=== PATIENT | female | born 1990 | race Caucasian/White ===

== ENCOUNTER 2023-03-25 08:45 | Emergency (ER) | payer BC, SELFPAY ==
[2023-03-25 09:34] VITALS: BP 121/73; PULSE 84; RESP 18; TEMP 36.9; O2SAT 97; BMI 22.6
--- NOTE | 2023-03-25 09:47 | W.ED.UPPEXIN ---
HPI - Extremity Injury (Upper) General: Chief Complaint: Fall Stated Complaint: fall, left arm injury Time Seen by Provider: 03/25/23 08:47 Source: patient Mode of arrival: ambulatory Limitations: no limitations History of Present Illness: Patient is a 32-year-old female presents to ED today with a complaint of a left forearm injury that she sustained just prior to arrival after she slipped on some wet stairs and fell directly onto the forearm. She denies any other injuries or complaints at this time. complaint: injury to: left and forearm Onset (ago): hour(s) Other Extremity Injury: Left: arm Other injuries: none Place: home Severity: moderate Relieving factors: immobilization Exacerbating factors: movement of extremity Context: fall and direct blow Associated symptoms: Reports no associated symptoms; Denies weakness in extremities Review of Systems Musc: Reports: extremity pain (L forearm); Denies: extremity swelling, joint pain, joint swelling, joint redness or joint warmth Skin/Breast: Reports: other (abrasion L forearm) Neuro: Denies: numbness in extremities, weakness in extremities or sensory changes Physical Exam Const: COMMON NORMALS: no acute distress, average body habitus, patient oriented x3, no limitations, healthy appearing, alert and well nourished HENMT: COMMON NORMALS: normocephalic and atraumatic HEAD & SCALP: normal to inspection, normocephalic and atraumatic Neck/C-Spine: COMMON NORMALS: full ROM CERVICAL SPINE: No Cervical spine tenderness Back/Pelvis: COMMON NORMALS: thoracic and lumbar spine normal to inspection and no thoracic nor lumbar tenderness Extremity: COMMON NORMALS: capillary refill normal GENERAL: Yes normal exam except as noted LEFT UPPER EXTREMITY: Yes elbow joint (full painless ROM), Yes lower arm (contusion/abrasion noted to ulnar mid forearm region w/o deformity) Left lower arm: Yes neurovascular exam (normal) and Yes wrist (full painless ROM) Neuro: COMMON NORMALS: patient oriented x3, moves all extremities, no focal motor deficits and no sensory deficits noted SENSORIUM/ORIENTATION: Yes alert Skin: NARRATIVE SKIN EXAM: minor L mid forearm abrasion Course Vital Signs: Vital signs: Vital Signs Temperature 98.4 F 03/25/23 09:34 Pulse Rate 84 03/25/23 09:34 Respiratory Rate 18 03/25/23 09:34 Blood Pressure 121/73 03/25/23 09:34 Pulse Oximetry 97 03/25/23 09:34 Oxygen Delivery Me thod Room Air 03/25/23 09:34 MDM - Extremity Injury (Upper) Medical Decision Making XR negative. Conservative therapies discussed. Discharge Plan Discharge Patient Disposition: Home Clinical Impression: Contusion of forearm, left Qualifiers: Encounter type: initial encounter Qualified Code(s): S50.12XA - Contusion of left forearm, initial encounter Condition: Stable Discharge Orders: Discharge ED (Routine); Ordered 03/25/23 Ordered By: Mikala Harper Patient Instructions: Contusion Coding Level of Care Code ED Spa Director/Finance for Derek Ramos
--- NOTE | 2023-03-25 09:50 | XRR_ITS ---
PROCEDURE INFORMATION: Exam: XR Left Forearm Exam date and time: 03/25/2023 9:59 AM Age: 32 years old Clinical indication: Injury or trauma; Blunt trauma (contusions or hematomas); Arm, lower; Left; Patient HX: Fall prev FX of lt forearm; Additional info: Fall/contusion/pain TECHNIQUE: Imaging protocol: Radiologic exam of the left forearm. Views: 2 views. COMPARISON: No relevant prior studies available. FINDINGS: Bones/joints: No radial fracture identified. No ulnar fracture identified. Soft tissues: Normal. XR/XR forearm LT 2V [id number] IMPRESSION: No radial or ulnar fracture identified.
== END 2023-03-25 10:19 | disposition home or self-care (01) ==
PROVIDERS: Emergency Provider Physician Assistant
DX: S50.12XA Contusion of left forearm, initial encounter (principal); W01.0XXA Fall on same level from slipping, tripping and stumbling without subsequent striking against object, initial encounter
CPT/HCPCS: 73090; 99283

== ENCOUNTER 2023-08-24 05:31 | Emergency (ER) | payer OTHER, SELFPAY ==
[2023-08-24 05:39] VITALS: BP 119/84; PULSE 110; RESP 23; TEMP 36.4; O2SAT 100; BMI 22.3
--- NOTE | 2023-08-24 05:50 | W.ED.NAVMDI ---
HPI - Nausea/Vomiting/Diarrhea General: Chief complaint: Nausea/Vomiting/Diarrhea Stated complaint: n/v Time Seen by Provider: 08/24/23 05:45 Source: patient Mode of arrival: ambulatory History of Present Illness: 33-year-old female presents to the emergency room with complaints of nausea and vomiting. Patient had rapid breathing with cramping of her hands and feet. She is still hyperventilating on arrival here she is not currently having any carpopedal spasm. She did admit to the nurses to drinking heavily last night. Patient has nausea and vomiting this morning. Denies abdominal pain no dysuria urgency or frequency she did have some flank pain last night that got better after she drank some water. MD elicited complaint: nausea and vomiting Onset (ago): hour(s) Description of vomiting: food contents and watery Associated nausea: Yes Associated abdominal pain: No Associated symtoms: Reports anxiety, anorexia, nausea and short of breath; Denies altered mental status, bloating, change in vision, chest pain, cough, diaphoresis, decreased urine output, dizziness, dysuria, epistaxis, fatigue, fecal incontinence, fevers/chills, headache(s), malaise, myalgias, numbness, palpitations, rash, syncope, tenesmus, tinnitus or weakness Review of Systems Const: Denies: fever(s), chills, fatigue, malaise or diaphoresis Eyes: Denies: change in vision ENMT: Denies: tinnitus or epistaxis Card: Denies: chest pain, palpitations or syncope Resp: Denies: dyspnea GI: Reports: nausea; Denies: abdominal pain, bloating or fecal incontinence : Denies: dysuria, urinary frequency or urinary urgency Musc: Denies: neck pain or back pain Skin/Breast: Denies: rash Neuro: Denies: headache(s) or dizziness Psych: Reports: anxiety Physical Exam Const: COMMON NORMALS: no acute distress EXAM LIMITATIONS: no altered mental status GENERAL APPEARANCE: cooperative and comfortable ORIENTATION/CONSCIOUSNESS: Yes awake, Yes oriented to person, Yes oriented to place and Yes oriented to time HENMT: COMMON NORMALS: normocephalic, atraumatic and hearing grossly normal bilaterally HEAD & SCALP: normocephalic and atraumatic Resp: COMMON NORMALS: normal respiratory effort, No retractions, No use of accessory muscles and clear to auscultation bilaterally AUSCULTATION: clear to auscultation bilaterally Cardio: COMMON NORMALS: regular rate, regular rhythm and No murmurs present (Cardio) RATE: regular rate RHYTHM: regular rhythm GI: COMMON NORMALS: Soft to palpation and No hepatosplenomegaly present AUSCULTATION: Yes normoactive bowel sounds PALPATION: Yes Soft to palpation, No Tenderness to palpation present (GI), No Guarding due to palpation present (GI) and Yes No hepatosplenomegaly present Extremity: COMMON NORMALS: normal to inspection, capillary refill normal, no clubbing, cyanosis or edema, no calf tenderness and no pedal edema Neuro: SENSORIUM/ORIENTATION: Yes oriented to person, Yes oriented to place and Yes oriented to time Skin: COMMON NORMALS: no rashes or lesions noted GENERAL SKIN EXAM: no rashes or lesions noted Course Vital Signs: Vital signs: Vital Signs Temperature 97.6 F 08/24/23 05:39 Pulse Rate 100 08/24/23 06:49 Respiratory Rate 16 08/24/23 06:49 Blood Pressure 105/57 08/24/23 06:49 Pulse Oximetry 98 08/24/23 06:49 Oxygen Delivery Me thod Room Air 08/24/23 06:49 MDM - Nausea/Vomiting/Diarrhea Medical Decision Making Blood gas shows respiratory alkalosis from hyperventilation clinically appearance is same. She been drinking heavily last anything for nausea vomiting is from the effects of alcohol and alcoholic gastritis. Advance diet as tolerated Pepcid 1 p.o. twice daily for a week promethazine as needed follow-up as needed Medical Records I reviewed the patient's medical records. Lab Data I reviewed the patient's lab results. 08/24/23 05:45 08/24/23 05:45 Laboratory Results WBC 13.53 10^3/uL (3.29-11.43) H 08/24/23 05:45 RBC 5.08 10^6/uL (3.85-5.65) 08/24/23 05:45 Hgb 14.70 g/dL (11.27-16.99) 08/24/23 05:45 Hct 43.7 % (36-47) 08/24/23 05:45 MCV 86.0 fl (85-98) 08/24/23 05:45 MCH 28.9 pg (27-33) 08/24/23 05:45 MCHC 33.6 g/dL (30-55) 08/24/23 05:45 RDW 12.4 % (12.1-15.1) 08/24/23 05:45 Plt Count 266 10^3/cmm (157-399) 08/24/23 05:45 MPV 10.1 fL (7.4-10.4) 08/24/23 05:45 Neut % (Auto) 78.4 % 08/24/23 05:45 Lymph % (Auto) 12.9 % 08/24/23 05:45 Sullivan % (Auto) 7.0 % 08/24/23 05:45 Eos % (Auto) 0.6 % 08/24/23 05:45 Baso % (Auto) 0.4 % 08/24/23 05:45 Neut # (Auto) 10.61 10^3/uL (1.8-7.7) H 08/24/23 05:45 Lymph # (Auto) 1.8 10^3/uL (0.8-4.8) 08/24/23 05:45 Sullivan # (Auto) 1.0 10^3/uL (0.2-0.9) H 08/24/23 05:45 Eos # (Auto) 0.1 10^3/uL (0.0-0.8) 08/24/23 05:45 Baso # (Auto) 0.1 10^3/uL (0.0-0.1) 08/24/23 05:45 Nucleated RBC % (auto) 0 % 08/24/23 05:45 Nucleated RBCs # 0.0 /100WBC 08/24/23 05:45 Specimen Type Arterial 08/24/23 06:19 Sample Site Radial, left 08/24/23 06:19 ABG pH 7.49 (7.35-7.45) H 08/24/23 06:19 ABG pCO2 23.2 mmHg (35-45) L 08/24/23 06:19 ABG pO2 121.0 mmHg (80.0-100.0) H 08/24/23 06:19 ABG PO2/FiO2 Ratio 0 08/24/23 06:19 ABG HCO3 17.7 mmol/L (22-26) L 08/24/23 06:19 ABG O2 Saturation 99.3 08/24/23 06:19 ABG Base Excess -3.6 mmol/L (-2.0-2.0) L 08/24/23 06:19 Ankit Test Pos 08/24/23 06:19 A-a O2 Gradient Not Reportable 08/24/23 06:19 Hematocrit 43.1 % (37-47) 08/24/23 06:19 Hgb O2 Saturation 98.4 % (95-100) 08/24/23 06:19 Carboxyhemoglobin 0.6 %THgb (0.4-20.1) 08/24/23 06:19 Methemoglobin 0.4 % (0.4-1.5) 08/24/23 06:19 Total Hemoglobin 14.1 g/dL (12-16) 08/24/23 06:19 Sodium 143.0 mmol/L (131-143) 08/24/23 06:19 Potassium 3.4 mmol/L (3.5-5.0) L 08/24/23 06:19 Glucose 107.0 mg/dL (70-115) 08/24/23 06:19 Ionized Calcium 1.1 mmol/L (1.1-1.4) 08/24/23 06:19 O2 Delivery Device Room air 08/24/23 06:19 FiO2 21.0 % 08/24/23 06:19 Plant Custodian ID [place] 08/24/23 06:19 Sodium 142 mmol/L (136-145) 08/24/23 05:45 Potassium 4.0 mmol/L (3.5-5.1) 08/24/23 05:45 Chloride 104 mmol/L (98-107) 08/24/23 05:45 Carbon Dioxide 20 mmol/L (22-29) L 08/24/23 05:45 Anion Gap 21.8 (5-19) H 08/24/23 05:45 BUN 12 mg/dL (6-20) 08/24/23 05:45 Creatinine 0.8 mg/dL (0.5-0.9) 08/24/23 05:45 GFR Calculation 82.6 mL/min (90-130) L 08/24/23 05:45 Glucose 111 mg/dL (65-115) 08/24/23 05:45 Calculated Osmolality 286 mOsm/kg (285-295) 08/24/23 05:45 Calcium 9.5 mg/dL (8.5-10.5) 08/24/23 05:45 Total Bilirubin 0.4 mg/dL (0.15-1.2) 08/24/23 05:45 AST 23 U/L (0-32) 08/24/23 05:45 ALT 29 U/L (0-33) 08/24/23 05:45 Alkaline Phosphatase 61 U/L (35-105) 08/24/23 05:45 Total Protein 7.4 g/dL (6.6-8.7) 08/24/23 05:45 Albumin 4.5 g/dL (3.5-5.2) 08/24/23 05:45 Globulin 2.9 g/dL (1.3-4.6) 08/24/23 05:45 Lipase 22 U/L (13-60) 08/24/23 05:45 HCG, Qual Negative (Negative) 08/24/23 05:45 Urine Color Yellow (Yellow) 08/24/23 08:09 Urine Appearance Clear (CLEAR) 08/24/23 08:09 Urine pH 9 (5-7) H 08/24/23 08:09 Ur Specific [place] 1.010 (1.005-1.030) 08/24/23 08:09 Urine Protein Trace (Negative) 08/24/23 08:09 Urine Glucose (UA) Norm (Normal) 08/24/23 08:09 Urine Ketones 1+ (Negative) H 08/24/23 08:09 Urine Blood Neg (Negative) 08/24/23 08:09 Urine Nitrate Negative (Negative) 08/24/23 08:09 Urine Bilirubin Neg (Negative) 08/24/23 08:09 Prot Sulfosalicylic Acd Trace (Negative) 08/24/23 08:09 Urine Urobilinogen Norm mg/dL (Negative) 08/24/23 08:09 Ur Leukocyte Esterase Trace (Negative) H 08/24/23 08:09 Urine RBC None /hpf (0-2) 08/24/23 08:09 Urine WBC 0-4 /hpf (0-5) H 08/24/23 08:09 Ur Squamous Epith Cells 10-15 /hpf (0-5) H 08/24/23 08:09 Amorphous Sediment Not Reportable 08/24/23 08:09 Urine Bacteria 1+ /hpf (NONE) H 08/24/23 08:09 Urine Mucus 2+ /hpf 08/24/23 08:09 Ethyl Alcohol < 10 mg/dL (0-10) 08/24/23 05:45 No radiology studies performed this visit Discharge Plan Discharge Patient Disposition: Home Clinical Impression: Hyperventilation, Acute alcoholic gastritis Condition: Stable Prescriptions: New Pepcid 40 mg tablet 40 mg PO BID Qty: 14 0RF promethazine 25 mg tablet 25 mg PO Q6H PRN (Reason: nausea and vomiting) Qty: 8 0RF Discharge Orders: Discharge ED (Routine); Ordered 08/24/23 Ordered By: Javad Crenshaw Discharge Diet: Usual diet Discharge Activity: Increase activity as tolerated Patient Instructions: Opioid Safety, Pain Management Activity Restrictions/Additional Instructions: Thank you for choosing [facility] for your healthcare needs today. Please realize this is an emergency room and that we are providing you with a medical screening exam and this may not be complete and all inclusive of all the testing and or work up that you may need to determine your ailment or severity of your illness. It is very important that you follow up as instructed or that you return to the Emergency Department should you have concerns or if your condition changes or worsens in any way. You are seen today with complaints of cramping in her hands (carpal spasm). This was due to hyperventilation. You have also been reported throwing up was likely due to irritation from to your stomach from alcohol ingestion (alcoholic gastritis). You can use promethazine as needed for nausea and vomiting Pepcid 1 pill twice daily for a week follow-up as needed. Coding Level of Care Code ED Shirt Sorter for Derek Ramos
[2023-08-24] MEDS: sodium chloride 0.9% 1,000 ML 999 ML IV (06:05)
[2023-08-24] MEDS: ondansetron 2 mg/ML SDV 2 mL 4 MG IVP (06:07)
[2023-08-24 06:10] LABS: Basophils # 0.1 10^3/uL (0.0-0.1); Basophils % 0.4 %; Eosinophils # 0.1 10^3/uL (0.0-0.8); Eosinophils % 0.6 %; Hematocrit 43.7 % (36-47); Lymphocytes # 1.8 10^3/uL (0.8-4.8); Lymphocytes % 12.9 %; Mean Corpuscular HGB Conc 33.6 g/dL (30-55); Mean Corpuscular Hemoglobin 28.9 pg (27-33); Mean Platelet Volume 10.1 fL (7.4-10.4); Neutrophils # 10.61 10^3/uL (1.8-7.7); Neutrophils % 78.4 %; Nucleated Red Blood Cells % 0 %; Platelet Count 266 10^3/cmm (157-399); Red Blood Count 5.08 10^6/uL (3.85-5.65); Red Cell Distribution Width 12.4 % (12.1-15.1); White Blood Count 13.53 10^3/uL (3.29-11.43)
[2023-08-24] MEDS: famotidine 20 mg/2 mL INJ 40 MG IVP (06:26)
[2023-08-24 06:28] LABS: Albumin Level 4.5 g/dL (3.5-5.2); Chloride 104 mmol/L (98-107); HCG, Serum Qual Negative (Negative); Sodium 142 mmol/L (136-145)
[2023-08-24 06:33] LABS: Alanine Aminotransferase 29 U/L (0-33); Alkaline Phosphatase 61 U/L (35-105); Anion Gap 21.8 (5-19); Aspartate Amino Transferase 23 U/L (0-32); Blood Urea Nitrogen 12 mg/dL (6-20); Calcium 9.5 mg/dL (8.5-10.5); Carbon Dioxide 20 mmol/L (22-29); Globulin 2.9 g/dL (1.3-4.6); Glomerular Filtration Rate 82.6 mL/min (90-130); Glucose 111 mg/dL (65-115); Lipase 22 U/L (13-60); Osmolality Calculated 286 mOsm/kg (285-295); Total Bilirubin 0.4 mg/dL (0.15-1.2); Total Protein 7.4 g/dL (6.6-8.7)
[2023-08-24 06:33] LABS: ABG PCO2 23.2 mmHg (35-45); ABG PH Result 7.49 (7.35-7.45); Arterial Blood Gas Hematocrit 43.1 % (37-47); Base Excess ABG -3.6 mmol/L (-2.0-2.0); Blood Gas Allen Test Pos; Blood Gas Operator Identificat WALCI; Blood Gas Sample Site Radial, left; Blood Gas Sample Type Arterial; Carboxyhemoglobin 0.6 %THgb (0.4-20.1); HCO3 ABG 17.7 mmol/L (22-26); HGB O2 Sat 98.4 % (95-100); Ionized Calcium Level - ABG 1.1 mmol/L (1.1-1.4); Methemoglobin 0.4 % (0.4-1.5); Oxygen Device ROOM AIR; Oxygen Saturation ABG 99.3; Potassium Level - ABG 3.4 mmol/L (3.5-5.0); Total Hemoglobin 14.1 g/dL (12-16)
[2023-08-24 06:42] LABS: Alcohol Level < 10 mg/dL (0-10)
[2023-08-24 06:49] VITALS: BP 105/57; PULSE 100; RESP 16; O2SAT 98
[2023-08-24 08:32] LABS: Bilirubin Urine Neg (Negative); Blood Urine Neg (Negative); Glucose Urine UA Norm (Normal); Ketones Urine 1+ (Negative); Nitrate Urine Negative (Negative); Protein Urine Trace (Negative); Sulfosalicylic Acid Urine Trace (Negative); Urine Appearance Clear (CLEAR); Urine Color Yellow (Yellow); pH Urine 9 (5-7)
[2023-08-24 08:33] LABS: Add Urine Culture? No; Add Urine Microscopic? YES; Bacteria Urine 1+ /hpf; Leukocyte Esterase Urine Trace (Negative); Mucus Urine 2+ /hpf; Urobilinogen Urine Norm (Negative); WBC Urine 0-4 /hpf (0-5)
== END 2023-08-24 09:19 | disposition home or self-care (01) ==
PROVIDERS: Emergency Provider Family Medicine
DX: R06.4 Hyperventilation (principal); K29.20 Alcoholic gastritis without bleeding
CPT/HCPCS: 36600; 80051; 80053; 80307; 81001; 82330; 82805; 83690; 84703; 85025; 96374; 96375; 99284; J2405; J3490; J7030